=== PATIENT | male | born 1980 | race Caucasian/White ===

== ENCOUNTER 2019-12-12 22:46 | Emergency (ER) | payer BC, OTHER ==
[2019-12-12 23:24] VITALS: BP 111/55; PULSE 60; TEMP 97.7; BMI 25.7
--- NOTE | 2019-12-12 23:58 | PDOC ---
History of Present Illness - General Chief Complaint: Ear Problem Stated Complaint: EARACHE/HEADACHE Past History - Past Medical History Allergies/Adverse Reactions: Allergies Allergy/AdvReac Type Severity Reaction Status Date / Time No Known Allergies Allergy Verified 12/13/19 00:08 Home Medications: Ambulatory Orders Ciprofloxacin HCl/Dexameth [Ciprodex Otic Suspension] 4 drop AU BID 7 Days #1 bottle 12/13/19 - Psycho Social/Smoking Cessation Hx Smoking History: Never smoked Have you smoked in the past 12 months: No Information on smoking cessation initiated: No Hx Alcohol Use: No Drug/Substance Use Hx: No *Physical Exam - Vital Signs Last Vital Signs Temp Pulse Resp BP Pulse Ox 97.7 F 60 20 111/55 L 99 12/12/19 23:00 12/12/19 23:00 12/12/19 23:00 12/12/19 23:00 12/12/19 23:00 Medical Decision Making - Medical Decision Making 12/12/19 23:59 HPI: 39yo M hx recurrent cerumen impaction presents from home with right ear pain since woke up this AM, feeling like something stuck in there, worse with jaw movement. Endorses b/l diminished hearing, R>L. Endorses hx of producing lots of ear wax requiring doctor removal. Endorses recent use of q-tips and hydrogen peroxide without improvement. Denies DM, immunosuppression, bugs in bed or house, recent swimming, water in ear, trauma, head injury. Endorses new pet ferret. Endorses diminished hearing b/l. Denies feeling like something moving inside, tinnitus, fever, chills, trismus, nausea, vomiting, neck pain or stiffness, vision changes, vertigo, lightheadedness, dizziness, dysphagia, dysarthria, voice change, hoarseness, dyspnea, chest pain, SOB, abdominal pain, sick contacts, travel, new medications. ROS: Constitutional: Negative for chills, fever, fatigue, diaphoresis. HENT: Positive for R ear pain and b/l diminished hearing. Negative for sore throat, rhinorrhea, congestion, trismus, tinnitus, neck pain/stiffness. Eyes: Negative for visual disturbance. Respiratory: Negative for shortness of breath, cough, and wheezing. Cardiovascular: Negative for chest pain, palpitations, and leg swelling. Gastrointestinal: Negative for abdominal pain, blood in stool, constipation, diarrhea, nausea, and vomiting. Genitourinary: Negative for dysuria, flank pain, and hematuria. Musculoskeletal: Negative for myalgias, back pain, and neck pain. Skin: Negative for rash. Neurological: Negative for light-headedness, dizziness, vertigo, syncope, weakness, numbness and headaches. Psychiatric/Behavioral: Negative for behavioral problems and confusion. PE: Gen: Alert, NAD, comfortable-appearing. HENT: PERRL, EOMI, MMM, NCAT. No conjunctival pallor. Sclera are non-icteric. Oropharynx is clear. Normal phonation. Uvula midline. No tonsillar hypertrophy. No sinus tenderness. Neck supple. R ear: Tenderness of tragus and pinna, diffuse ear canal erythema, swelling of ear, significant amount of dark red oily cerumen, no foreign bodies, no drainage. Unable to visualize TM due to cerumen. L ear: Significant amount of dark red oily cerumen, no foreign bodies, no drainage, no tenderness, no erythema or swelling. Unable to visualize TM due to cerumen. CV: Regular rate and rhythm. No murmurs, rubs, or gallops. PULM: No resp distress. CTAB, no wheezes, rales, or rhonchi. ABD: soft, NT/ND, no rebound tenderness or guarding, no CVA tenderness. BACK: No TTP of c/t/l-spine. No step-offs or deformities. MSK: No bony deformities. 2+ pulses in all extremities. NEURO: AAOx3. PERRL. CN 2-12 intact. 5/5 strength in all extremities. Sensation to light touch intact in all extremities. No abnormal nystagmus. Normal gait. EXTREMITIES: No cyanosis. No clubbing. No edema. No calf tenderness. PSYCH: Normal mood and thought pattern. SKIN: Warm and dry. Normal capillary refill. No rashes. No jaundice. MDM: 39yo M hx recurrent cerumen impaction presents from home with right ear pain since woke up this AM. Hemodynamically stable, afebrile, neurologically intact. R ear: Tenderness of tragus and pinna, diffuse ear canal erythema, swelling of ear, significant amount of dark red oily cerumen, no foreign bodies, no drainage. Unable to visualize TM due to cerumen. L ear: Significant amount of dark red oily cerumen, no foreign bodies, no drainage, no tenderness, no erythema or swelling. Unable to visualize TM due to cerumen. S/s consistent with acute otitis externa. Unable to visualize TMs, but no other sx concerning for AOM and presentation most consistent with AOE. No systemic sx. No respiratory sx. No CN or neurologic deficits. No s/s concerning for malignant otitis externa. -Clean cerumen -Ibuprofen -Dispo: likely d/c home pending cerumen removal 12/13/19 00:48 Cleaned both ears with hydrogen peroxide and curette. Significant amount of cerumen removed. Tympanic membranes remain difficult to visualize 2/2 cerumen. Pt states hearing b/l and R ear pain both drastically improved, feels like hearing of "superhero." Gave pt self-cerumen removal instructions and will have pt f/u with ENT and PCP for additional cleaning. Will discharge home with ENT f/u and ciprodex rx. Return precautions given. Pt understands all discharge instructions and all questions were answered. Discharge - Discharge Information Problems reviewed: Yes Clinical Impression/Diagnosis: Otitis externa of right ear Condition: Improved Disposition: HOME - Admission No - Additional Discharge Information Prescriptions: Ciprofloxacin HCl/Dexameth [Ciprodex Otic Suspension] 4 drop AU BID 7 Days #1 bottle - Follow up/Referral - Patient Discharge Instructions Patient Printed Discharge Instructions: DI for Otitis Externa Additional Instructions: You have been seen in the Emergency Department for your ear pain. Your right ear is infected (Otitis Externa). We have sent antibiotic ear drops to your [facility]. Use as prescribed. Both of your ears also had a lot of ear wax. They were cleaned but ear wax remained. Use over the counter ear wax softening and removal to keep your ears clean and prevent future infections. Follow up with your primary care doctor within 1 week. Return to the Emergency Department immediately if you develop fever, vomiting, inability to move jaw, difficulty swallowing, neck pain, or any other new or worsening symptoms. - Post Discharge Activity Work/Back to School Note: Back to Work
[2019-12-13] MEDS ORDERED: IBUPROFEN 600 MG TABLET (FP) PO ONE (00:02)
--- NOTE | 2019-12-13 00:12 | PDOC ---
Documentation entered by Christophe Rosa SCRIBE, acting as scribe for Libra Garner MD. Libra Garner MD: This documentation has been prepared by the dominickibeConrado Nirvannie, SCRIBE, under my direction and personally reviewed by me in its entirety. I confirm that the documentation accurately reflects all work, treatment, procedures, and medical decision making performed by me. Attending Attestation - Resident Resident Name: Jordana Tovar - ED Attending Attestation I have performed the following: I have examined & evaluated the patient, The case was reviewed & discussed with the resident, I agree w/resident's findings & plan, Exceptions are as noted - HPI HPI: 12/13/19 00:00 [id number] with no significant past medical history who presents to the ED with right ear pain. Patient notes to have recently bought a new pet ferret. Denies any recent trauma to the ear or recent swimming. Denies fever, chills, chest pain, SOB, palpitation, dizziness, weakness, N, V, D, abdominal pain, bladder and bowel problems, leg swelling, No sick contacts or travel. No new changes in medications. Allergies: None Past Medical History: None reported. Social history: Lives with family. No tobacco, ETOH or drug use. Surgical history: None reported. Meds: as documented in EMR - Physicial Exam PE: 12/13/19 00:01 NAD, well appearing, NCAT, PERRL, EOMI, clear conjunctiva, anicteric, moist mucus membranes, oropharynx clear. Airway patent, normal phonation. Uvula midline. no tonsillar hypertrophy. No sinus tenderness, TM not visualized, +right pinna tenderness to manipulation. some erythema to the external auditory canal no FB b/l cerumen MMM, nl conjunctiva, anicteric; neck supple. lungs clear, no respiratory distress. RRR, abdomen soft nontender. Back nontender. REYNAGA x4, no focal neuro deficits. No peripheral edema. normal color for ethnicity, WWP. 12/13/19 00:11 12/13/19 00:12 12/13/19 00:53 - Medical Decision Making 12/13/19 00:11 Vital Signs Temp Pulse Resp BP Pulse Ox 97.7 F 60 20 111/55 L 99 12/12/19 23:00 12/12/19 23:00 12/12/19 23:00 12/12/19 23:00 12/12/19 23:00 Vital signs reviewed, afebrile, within normal limits No systemic features no respiratory distress. Patient is well-appearing, nontoxic Right ear with tenderness to pinna manipulation, external auditory canal appears inflamed. There is bilateral cerumen, will clean out, clinically with acute otitis externa. TM difficult to visualize, but no other sx to suggest AOM, no fever or systemic or respiratory sx cleaned out both ears, and pt feels better. Will treat with Ciprodex otic solution x1 week course. Avoid water contact or further trauma. DC stable condition with primary followup, return precautions including s/s infection or other changes/worsening sx. 12/13/19 00:53
== END 2019-12-13 01:00 | disposition home or self-care (01) ==
LOC: JER 22:46
PROC: 3E1B78Z Irrigation of Ear using Irrigating Substance, Via Natural or Artificial Opening (ICD-10-PCS; principal; 2019-12-12)
DX: H60.502 Unspecified acute noninfective otitis externa, left ear (principal); H61.22 Impacted cerumen, left ear
CPT/HCPCS: 99282-25

== ENCOUNTER 2021-05-17 11:22 | Emergency (ER) | payer BC, OTHER ==
[2021-05-17 11:33] VITALS: BP 111/67; PULSE 78; TEMP 98; BMI 28.4
== END 2021-05-17 12:10 | disposition home or self-care (01) ==
LOC: JERFT 11:22
DX: R51.9 Headache, unspecified (principal); M54.2 Cervicalgia; V49.40XA Driver injured in collision with unspecified motor vehicles in traffic accident, initial encounter
CPT/HCPCS: 99281-25

== ENCOUNTER 2022-02-01 09:39 | Emergency (ER) | payer OTHER ==
[2022-02-01 09:49] VITALS: BP 138/78; PULSE 81; TEMP 98; BMI 27.4
[2022-02-01] MEDS ORDERED: SODIUM CHLORIDE 1,000 ML IV STA (10:52)
[2022-02-01] MEDS ORDERED: ACETAMINOPHEN 1000 MG/100 ML BAG IVPB ONE (10:52)
[2022-02-01] MEDS ORDERED: ACETAMINOPHEN INJECTION 100 ML IVPB ONE (11:04)
[2022-02-01 11:29] LABS: BASO % 1.1 % (0-2.0); EOS % 2.2 % (0-4.5); HEMATOCRIT 44.3 % (35.4-49); HEMOGLOBIN 15.2 GM/dL (11.7-16.9); LYMPH % 33.8 % (8-40); MCH 30.4 pg (25.7-33.7); MCHC 34.3 g/dl (32.0-35.9); MEAN CELL VOLUME 88.6 fl (80-96); MEAN PLT VOLUME 7.7 fl (7.5-11.1); MONO % 7.5 % (3.8-10.2); NEUT % 55.4 % (42.8-82.8); PLATELET COUNT 293 10^3/uL (134-434); RBC 5.01 M/mm3 (4.00-5.60); RDW 13.3 % (11.9-15.9)
[2022-02-01 11:47] LABS: ALBUMIN 4.4 g/dl (3.4-5.0); BLOOD UREA NITROGEN 9.8 mg/dL (7-18); CALCIUM 9.6 mg/dL (8.5-10.1)
[2022-02-01 11:51] LABS: CREATININE 0.8 mg/dL (0.55-1.3)
[2022-02-01 11:52] LABS: BILIRUBIN,TOTAL 1.1 mg/dL (0.2-1); TOT PROT 7.7 g/dl (6.4-8.2)
== END 2022-02-01 14:21 | disposition home or self-care (01) ==
LOC: JER 09:39
PROC: 3E033GC Introduction of Other Therapeutic Substance into Peripheral Vein, Percutaneous Approach (ICD-10-PCS; principal; 2022-02-01)
DX: R06.02 Shortness of breath (principal)
CPT/HCPCS: 36415; 71046-TC-FY; 80053; 84484; 85025; 85379; 87804; 93005; 93010; 99285-25; C9803-CS; U0003; U0005

== ENCOUNTER 2022-03-15 11:52 | Emergency (ER) | payer OTHER ==
[2022-03-15 11:58] VITALS: TEMP 98.2; BMI 25.4
[2022-03-15] MEDS ORDERED: SODIUM CHLORIDE 1,000 ML IV STA (13:43)
[2022-03-15 15:40] LABS: BASO % 0.6 % (0-2.0); EOS % 1.1 % (0-4.5); HEMATOCRIT 44.7 % (35.4-49); LYMPH % 24.5 % (8-40); MCH 30.3 pg (25.7-33.7); MCHC 33.5 g/dl (32.0-35.9); MEAN CELL VOLUME 90.5 fl (80-96); MEAN PLT VOLUME 8.2 fl (7.5-11.1); MONO % 5.1 % (3.8-10.2); NEUT % 68.7 % (42.8-82.8); PLATELET COUNT 275 10^3/uL (134-434); RBC 4.94 M/mm3 (4.00-5.60); RDW 13.2 % (11.9-15.9); WHITE BLOOD COUNT 5.5 K/mm3 (4.0-10.0)
[2022-03-15 15:59] LABS: INR 1.14 (0.83-1.09); PROTHROMBIN TIME (PATIENT) 13.1 SEC (9.7-13.0)
[2022-03-15 16:11] LABS: CALCIUM 9.2 mg/dL (8.5-10.1)
[2022-03-15 16:12] LABS: ALBUMIN 4.3 g/dl (3.4-5.0); BLOOD UREA NITROGEN 13.3 mg/dL (7-18); MAGNESIUM 2.1 mg/dL (1.8-2.4)
[2022-03-15 16:15] LABS: CREATININE 0.8 mg/dL (0.55-1.3)
[2022-03-15 16:17] LABS: BILIRUBIN,TOTAL 0.8 mg/dL (0.2-1); TOT PROT 7.5 g/dl (6.4-8.2)
[2022-03-15 16:34] VITALS: BP 110/62; PULSE 63
== END 2022-03-15 17:35 | disposition home or self-care (01) ==
LOC: JER 11:52
PROC: 3E0337Z Introduction of Electrolytic and Water Balance Substance into Peripheral Vein, Percutaneous Approach (ICD-10-PCS; principal; 2022-03-15)
DX: R07.89 Other chest pain (principal)
CPT/HCPCS: 36415; 71046-TC-FY; 80053; 83735; 84443; 84484; 85025; 85379; 85610; 85730; 86618; 93005; 93010; 99285-25

== ENCOUNTER 2022-03-28 09:04 | Emergency (ER) | payer OTHER ==
[2022-03-28 09:18] VITALS: BP 110/71; PULSE 86; TEMP 98.1; BMI 25.8
[2022-03-28] MEDS ORDERED: SODIUM CHLORIDE 0.9% 1000 ML INFUS.BAG IV ONE (10:12)
[2022-03-28 10:43] LABS: BASO % 0.5 % (0-2.0); EOS % 1.3 % (0-4.5); HEMATOCRIT 43.6 % (35.4-49); HEMOGLOBIN 14.8 GM/dL (11.7-16.9); LYMPH % 16.1 % (8-40); MCH 30.7 pg (25.7-33.7); MCHC 33.9 g/dl (32.0-35.9); MEAN CELL VOLUME 90.7 fl (80-96); MEAN PLT VOLUME 7.9 fl (7.5-11.1); MONO % 6.4 % (3.8-10.2); NEUT % 75.7 % (42.8-82.8); PLATELET COUNT 274 10^3/uL (134-434); RBC 4.81 M/mm3 (4.00-5.60); RDW 13.2 % (11.9-15.9); WHITE BLOOD COUNT 6.4 K/mm3 (4.0-10.0)
[2022-03-28 11:02] LABS: CALCIUM 9.2 mg/dL (8.5-10.1)
[2022-03-28 11:03] LABS: ALBUMIN 4.2 g/dl (3.4-5.0); BLOOD UREA NITROGEN 12.7 mg/dL (7-18)
[2022-03-28 11:07] LABS: BILIRUBIN,TOTAL 0.3 mg/dL (0.2-1)
[2022-03-28 11:08] LABS: TOT PROT 7.1 g/dl (6.4-8.2)
[2022-03-28 12:16] LABS: HIV INTERPRETATION NEGATIVE (NEGATIVE)
[2022-03-28 13:36] LABS: PH,URINE 5.5 (5.0-8.0); URINE APPEARANCE CLEAR; URINE BILIRUBIN NEGATIVE (NEGATIVE); URINE COLOR YELLOW; URINE GLUCOSE (UA) NEGATIVE (NEGATIVE); URINE KETONE NEGATIVE (NEGATIVE); URINE LEUK ESTERASE NEGATIVE (NEGATIVE); URINE NITRITE NEGATIVE (NEGATIVE); URINE PROTEIN NEGATIVE (NEGATIVE); URINE UROBILINOGEN 0.2 mg/dL (0.2-1.0)
== END 2022-03-28 14:38 | disposition home or self-care (01) ==
LOC: JER 09:04
DX: R00.2 Palpitations (principal)
CPT/HCPCS: 36415; 80053; 81003; 84443; 84484; 85025; 86780; 87086; 87389; 87491; 87591; 93005; 93010; 99284-25

== ENCOUNTER 2023-11-26 11:38 | Emergency (ER) | payer BC, OTHER ==
[2023-11-26 11:48] VITALS: RESP 18; BMI 29.0
[2023-11-26 13:11] LABS: PH,URINE 5.5 (5.0-8.0); URINE APPEARANCE CLEAR; URINE BILIRUBIN NEGATIVE (NEGATIVE); URINE COLOR YELLOW; URINE GLUCOSE (UA) NEGATIVE (NEGATIVE); URINE KETONE NEGATIVE (NEGATIVE); URINE LEUK ESTERASE NEGATIVE (NEGATIVE); URINE NITRITE NEGATIVE (NEGATIVE); URINE PROTEIN NEGATIVE (NEGATIVE); URINE UROBILINOGEN 0.2 mg/dL (0.2-1.0)
[2023-11-26 13:15] LABS: BASO % 0.9 % (0-2.0); HEMOGLOBIN 15.1 GM/dL (11.7-16.9); LYMPH % 26.6 % (8-40); MCH 31.1 pg (25.7-33.7); MCHC 34.3 g/dl (32.0-35.9); MEAN CELL VOLUME 90.7 fl (80-96); MEAN PLT VOLUME 7.4 fl (7.5-11.1); MONO % 9.7 % (3.8-10.2); NEUT % 58.8 % (42.8-82.8); PLATELET COUNT 257 10^3/uL (134-434); RBC 4.86 M/mm3 (4.00-5.60); RDW 13.3 % (11.9-15.9)
[2023-11-26 13:25] LABS: POTASSIUM 3.9 mmol/L (3.5-5.1)
[2023-11-26 13:27] LABS: CALCIUM 9.1 mg/dL (8.5-10.1)
[2023-11-26 13:28] LABS: ALBUMIN 3.8 g/dl (3.4-5.0); BLOOD UREA NITROGEN 19.7 mg/dL (7-18)
[2023-11-26 13:32] LABS: BILIRUBIN,TOTAL 0.5 mg/dL (0.2-1); TOT PROT 7.2 g/dl (6.4-8.2)
[2023-11-26 15:49] VITALS: BP 126/59; PULSE 63; TEMP 98.2
== END 2023-11-26 16:51 | disposition home or self-care (01) ==
LOC: JER 11:38
DX: R31.9 Hematuria, unspecified (principal); M54.50 Low back pain, unspecified; N50.811 Right testicular pain; N50.812 Left testicular pain; R51.9 Headache, unspecified
CPT/HCPCS: 36415; 76870-TC; 80053; 81003; 85025; 87086; 87491; 87591; 99284-25

== ENCOUNTER 2024-02-17 18:23 | Emergency (ER) | payer OTHER, BC ==
[2024-02-17 19:01] VITALS: BP 132/66; PULSE 66; RESP 20; TEMP 98.2; BMI 30.4
[2024-02-17] MEDS ORDERED: ACETAMINOPHEN 500 MG TABLET (FP) ONE (19:56)
[2024-02-17] MEDS: ACETAMINOPHEN 500 MG TABLET (FP) PO ONE (19:57)
== END 2024-02-17 21:14 | disposition home or self-care (01) ==
LOC: JERFT 18:23
DX: R51.9 Headache, unspecified (principal)
CPT/HCPCS: 70450-TC; 99284-25